=== PATIENT | male | born 1955 | race Caucasian/White ===

== ENCOUNTER 2017-07-19 08:59 | Emergency (ER) | payer BC ==
[2017-07-19 09:11] VITALS: BP 132/68
--- NOTE | 2017-07-19 09:14 | UC ---
Skin Complaint HPI - HPI Summary HPI Summary: 62 y/o male presents to the urgent care c/o red rash rash in his RT axilla, mildly painful and raised clusters that is spreading in his chest and posterior shoulder for the past 2 days. Pt states he had chicken pox as a child. Pain is 1/10. Pt denies fever, SOB, chest pain, abdominal pain, N/V/D. - History of Current Complaint Chief Complaint: [facility] Time Seen by Provider: 07/19/17 09:11 Stated Complaint: RASH Hx Obtained From: Patient Onset/Duration: Gradual Onset, Lasting Days - 2 days, Still Present Skin Exposure Onset/Duration: Days Ago - 2 days Timing: Constant Onset Severity: Mild Current Severity: Mild Pain Intensity: 1 Pain Scale Used: 0-10 Numeric Location: Discrete - Rt axilla, chest and posterior Rt shoulder. Character: Pain, Redness Aggravating Factor(s): Touch Alleviating Factor(s): Nothing Associated Signs & Symptoms: Positive: Tenderness - mild. Negative: Nausea, Vomiting, Fever, Chills, Cough - Allergy/Home Medications Allergies/Adverse Reactions: Allergies Allergy/AdvReac Type Severity Reaction Status Date / Time No Known Allergies Allergy Verified 07/19/17 09:06 Home Medications: Home Medications Latanoprost 0.005%* [Xalatan 0.005%*] 1 drop BOTH EYES BEDTIME 07/19/17 [ History Confirmed 07/19/17] Review of Systems Constitutional: Negative Skin: Rash - at the Rt axiila, RT upper chest and RT posterior shoulder Eyes: Negative ENT: Negative Respiratory: Negative Cardiovascular: Negative Gastrointestinal: Negative Genitourinary: Negative Motor: Negative Neurovascular: Negative Musculoskeletal: Negative Neurological: Negative Psychological: Negative Is Patient Immunocompromised?: No All Other Systems Reviewed And Are Negative: Yes PMH/Surg Hx/FS Hx/Imm Hx Previously Healthy: Yes - Pt denies PMHX - Surgical History Surgical History: Yes Surgery Procedure, Year, and Place: Left Knee Arthroscopy and Open Orthopedic Surgeries - Family History Known Family History: Positive: None - Pt denies FMHX - Social History Occupation: Employed Full-time Lives: With Family Alcohol Use: Weekly Alcohol Amount: few times a week Substance Use Type: None Smoking Status (MU): Never Smoked Tobacco - Immunization History Most Recent Influenza Vaccination: Not the Season Physical Exam Triage Information Reviewed: Yes Appearance: Well-Appearing, No Pain Distress, Well-Nourished Vital Signs: Initial Vital Signs Temp 98 F 07/19/17 09:03 Pulse 72 07/19/17 09:03 Resp 16 07/19/17 09:03 BP 132/68 07/19/17 09:03 Pulse Ox 100 07/19/17 09:03 Vital Signs Reviewed: Yes Eye Exam: Normal Eyes: Positive: Conjunctiva Clear - PERRLA, EOMI, findi grossly normal ENT Exam: Normal ENT: Positive: Normal ENT inspection, Hearing grossly normal, Pharynx normal, TMs normal Neck exam: Normal Neck: Positive: Supple, Nontender, No Lymphadenopathy Respiratory Exam: Normal Respiratory: Positive: Chest non-tender, Lungs clear, Normal breath sounds Cardiovascular Exam: Normal Cardiovascular: Positive: RRR, No Murmur, Pulses Normal Abdominal Exam: Normal Abdomen Description: Positive: Nontender, No Organomegaly, Soft. Negative: CVA Tenderness (R), CVA Tenderness (L) Bowel Sounds: Positive: Present Musculoskeletal Exam: Normal Musculoskeletal: Positive: Strength Intact, ROM Intact, No Edema Neurological Exam: Normal Psychological Exam: Normal Skin: Positive: rashes - RT axilla, RT upper chest and Rt posterior shoulder with erythematous vesicular eruption in clusters in a dermatomal pattern, at different stages. mild tenderness on palpation. Course/Dx - Course Course Of Treatment: 62 y/o male presents to the urgent care c/o red rash rash in his RT axilla, mildly painful and raised clusters that is spreading in his chest and posterior shoulder for the past 2 days. Pt states he had chicken pox as a child. Pain is 1/10. Pt denies fever, SOB, chest pain, abdominal pain, N/V /D. HX obtained. Pt with with Herpes Zoster on examination. Pt Rx Valacyclovir PO and [id number] PO for pain, Calamide lotion to alleviate rash. PT understood and agreed with D/C instructions and left the clinic ambulating. - Differential Diagnoses - Skin Complaint Differential Diagnoses: Abscess, Cellulitis, Local Allergic Reaction, MRSA, Urticaria, Varicella Zoster - Diagnoses Provider Diagnoses: 1- Varicella Zoster Discharge - Discharge Plan Condition: Stable Disposition: HOME Prescriptions: Ibuprofen TAB* [Motrin TAB* 800 MG] 800 mg PO Q6H #30 tab Pramoxine-Calamine [Eql Calamine Medicated 1-8 %] 1 lot EX Q6HR #1 lotion Valacyclovir HCl 1,000 mg PO Q8HR #21 tab Patient Education Materials: Shingles (ED) Referrals: Kristopher Hamilton MD [Primary Care Provider] - If Needed Additional Instructions: 1- Please take the full course of the antiviral medication to alleviate symptoms. 2-Please take ibuprofen PO q6-8hrs prn as instructed after meals to alleviate pain. apply topical lotion as directed. 3-If symptoms do not improve or worsen please return to the urgent care or f/u with your PCP for further evaluation and treatment.
== END 2017-07-19 09:45 | disposition home or self-care (01) ==
LOC: UCCORT 08:59
DX: B02.9 Zoster without complications (principal)
CPT/HCPCS: 99212; G0463

== ENCOUNTER 2017-07-26 09:05 | Emergency (ER) | payer BC ==
[2017-07-26 09:20] VITALS: BP 119/68
--- NOTE | 2017-07-26 09:21 | UC ---
Skin Complaint HPI - HPI Summary HPI Summary: Dx with Shingles about one week ago---wants to be sure they are better--- lesions scabbed no drainage or redness - History of Current Complaint Chief Complaint: [facility] Time Seen by Provider: 07/26/17 09:12 Stated Complaint: RE-CK SHINGLES Hx Obtained From: Patient Onset/Duration: Gradual Onset, Lasting Days, Still Present Timing: Constant Onset Severity: Moderate Current Severity: Mild Pain Intensity: 3 Pain Scale Used: 0-10 Numeric Location: Discrete - righ scapula, anterior chest wall and right upper arm--- Aggravating Factor(s): Nothing Alleviating Factor(s): Nothing Associated Signs & Symptoms: Positive: Negative - Allergy/Home Medications Allergies/Adverse Reactions: Allergies Allergy/AdvReac Type Severity Reaction Status Date / Time No Known Allergies Allergy Verified 07/26/17 09:09 Home Medications: Home Medications Ibuprofen TAB* [Motrin TAB* 800 MG] 800 mg PO Q6H PRN 07/26/17 [History Confirmed 07/26/17] Pramoxine-Calamine [Eql Calamine Medicated 1-8 %] 1 lot EX Q6HR PRN 07/26/17 [ History Confirmed 07/26/17] Review of Systems Constitutional: Negative Skin: Negative, Other - scapula and anterior chest wall scabbed, left arm appears to be a new bug bite Eyes: Negative ENT: Negative Respiratory: Negative Cardiovascular: Negative Gastrointestinal: Negative Genitourinary: Negative Motor: Negative Neurovascular: Negative Musculoskeletal: Negative Neurological: Negative Psychological: Negative Is Patient Immunocompromised?: No All Other Systems Reviewed And Are Negative: Yes PMH/Surg Hx/FS Hx/Imm Hx Previously Healthy: Yes - glacoma - Surgical History Surgical History: Yes Surgery Procedure, Year, and Place: Left Knee Arthroscopy and Open Orthopedic Surgeries - Family History Known Family History: Positive: None - Pt denies FMHX - Social History Occupation: Employed Full-time Lives: With Family Alcohol Use: Occasionally Alcohol Amount: few times a week Substance Use Type: None Smoking Status (MU): Never Smoked Tobacco - Immunization History Most Recent Influenza Vaccination: Not the Season Physical Exam Triage Information Reviewed: Yes Appearance: Well-Appearing, No Pain Distress, Well-Nourished Vital Signs: Initial Vital Signs Temp 98 F 07/26/17 09:11 Pulse 68 07/26/17 09:11 Resp 18 07/26/17 09:11 BP 119/68 07/26/17 09:11 Pulse Ox 97 07/26/17 09:11 Vital Signs Reviewed: Yes Eye Exam: Normal Eyes: Positive: Conjunctiva Clear ENT Exam: Normal ENT: Positive: Normal ENT inspection, Hearing grossly normal. Negative: Nasal congestion, Nasal drainage, Trismus, Muffled/hoarse voice Dental Exam: Normal Neck exam: Normal Neck: Positive: Supple, Nontender, No Lymphadenopathy Respiratory Exam: Normal Respiratory: Positive: Chest non-tender, No respiratory distress, No accessory muscle use Cardiovascular Exam: Normal Cardiovascular: Positive: RRR, No Murmur, Pulses Normal, Brisk Capillary Refill Musculoskeletal Exam: Normal Musculoskeletal: Positive: Strength Intact, ROM Intact, No Edema Neurological Exam: Normal Neurological: Positive: Alert, Muscle Tone Normal Psychological Exam: Normal Psychological: Positive: Normal Response To Family Skin Exam: Other Skin: Positive: Other - scapula and anterior chest wall scabbed, left arm appears to be a new bug bite Course/Dx - Course Course Of Treatment: finish acyclovir, no longer any concerns about being contagious, follow with pcp prn - Differential Diagnoses - Skin Complaint Differential Diagnoses: Varicella Zoster - Diagnoses Provider Diagnoses: Resolving skin lesions Discharge - Discharge Plan Condition: Stable Disposition: HOME Patient Education Materials: Shingles (ED) Referrals: Kristopher Hamilton MD [Primary Care Provider] - Additional Instructions: Finish antiviral medication as planned---I do not believe the spot on your arm is related to the ones on your torso---. Everything appears to be healing well-- -
== END 2017-07-26 09:36 | disposition home or self-care (01) ==
LOC: UCCORT 09:05
DX: B02.9 Zoster without complications (principal)
CPT/HCPCS: 99211; G0463